=== PATIENT | female | born 1960 | race Caucasian/White ===

== ENCOUNTER 2023-04-28 08:45 | Outpatient (AMB) | payer BC, SELFPAY ==
--- NOTE | 2023-04-28 09:17 | AM.OFFWIN_ITS ---
Intake Vital Signs 04/28/23 09:19 Weight 139 lb BP 132/78 Blood Pressure Location Lt brachial Position Sitting Pulse 68 Pulse Source Pulse Oximeter Pulse Oximetry (%) 99 Oxygen Delivery Method Room Air Intake Visit Reasons: [employer] RT Sore knee Intake Note: Patient here for recurring issue w/right knee soreness and warm to the touch which has been bothersome for about 2 days. Patient Tobacco Use Status: Former Tobacco user Allergies No Known Allergies Allergy (Verified 04/28/23 09:20) Do you need a note to return to daycare/school/sports/work: Yes HPI HPI Comments History of Present Illness Details 62 y/o female patient who presents to [facility] with c/o right knee pain x 2 days. Pt is new to [facility], her PCP is My[facility]. Reports remote h/o Gout knees and great toes. States taking Prednisone everytime she has a flare- up. Last episode 1 year ago. Pt reports taking Acetaminophen with minimal relief. PFSH Social History Patient Tobacco Use Status: Former Tobacco user Review of Systems Const All systems reviewed & are unremarkable except as noted in HPI and below Physical Exam Vital Signs: Last Vital Signs Pulse 68 04/28/23 09:19 BP 132/78 04/28/23 09:19 Pulse Ox 99 04/28/23 09:19 Oxygen Delivery Method Room Air 04/28/23 09:19 Const General: comfortable and no acute distress Orientation/consciousness: patient oriented x3 Neuro General: patient oriented x3 and moves all extremities Extrem Right lower extremity: knee Details: tenderness Location: of the patella and normal ROM; no swelling and no crepitus Left lower extremity: normal to inspection and full ROM Psych Speech and movement: Clear speech present Attitude: cooperative Assessment & Plan Assessment & Plan (1) Right knee pain: Code(s): M25.561 - Pain in right knee Qualifiers: Chronicity: unspecified Qualified Code(s): M25.561 - Pain in right knee Plan: - Ordered Uric Acid level - Pt declined Knee Brace - Declined Imaging -Advised Pt that I will need to confirm Gout flare-up before sending Tx. Orders: Orders Uric Acid Today M25.561 - Pain in right knee Coding Level of Care Code New Pt Level 3 (01652) Diagnoses Right knee pain, unspecified chronicity M25.561 Chronicity: unspecified Time Spent (min) 15
[2023-04-28 09:19] VITALS: BP 132/78; PULSE 68; O2SAT 99
== END 2023-04-28 10:15 | disposition home or self-care (01) ==
PROVIDERS: PCP Nurse Practitioner Family; Visit Provider Nurse Practitioner Family
DX: M25.561 Pain in right knee (principal)
CPT/HCPCS: 99203

== ENCOUNTER 2023-04-28 09:58 | Outpatient (REF) | payer BC, SELFPAY ==
[2023-04-28 14:08] LABS: Uric Acid 6.9 mg/dL (2.4-5.7)
== END 2023-04-28 09:59 | disposition home or self-care (01) ==
LOC: HO.HMGCLDS 09:58
PROVIDERS: PCP Nurse Practitioner Family; Visit Provider Nurse Practitioner Family
DX: M25.561 Pain in right knee (principal)
CPT/HCPCS: 36415; 84550